=== PATIENT | male | born 1990 | race Caucasian/White ===

== ENCOUNTER 2024-11-06 08:15 | Outpatient (CLI) | payer OTHER | END 2024-11-06 23:59 | disposition home or self-care (01) | LOC: MRI02 08:15 | PROVIDERS: ATTEND Family Medicine Sports Medicine | DX: M22.3X2 Other derangements of patella, left knee (principal); M25.862 Other specified joint disorders, left knee; M25.562 Pain in left knee | CPT/HCPCS: 73721 ==